=== PATIENT | female | born 2000 | race Caucasian/White ===

== ENCOUNTER 2021-09-10 09:25 | Emergency (ER) | payer OTHER, SELFPAY ==
--- NOTE | ~2021-09-10 | XR_ITS ---
EXAMINATION: XR HAND, RIGHT CLINICAL INFORMATION: Right index finger pain. COMPARISON: None TECHNIQUE: PA, lateral, and oblique views of the right hand. FINDINGS: The bones and soft tissues are normal. No fracture. Alignment is anatomic. Joint spaces are maintained. No erosions or soft tissue calcifications. XR/XR hand RT 2V IMPRESSION: Unremarkable right hand. Specifically, the second digit is intact.
[2021-09-10 09:28] VITALS: BP 117/65; PULSE 91; RESP 19; TEMP 36.3; O2SAT 96; BMI 22.1
[2021-09-10 10:25] LABS: MANUAL DIFF FLAG NO
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
[2021-09-10 10:39] LABS: Basophils Percent Auto 0.2 % (0-2); Eosinophils Absolute Auto 0.1 X10*3/uL (0.0-0.4); Eosinophils Percent Auto 0.6 % (0-4); Hematocrit 39.6 % (37.0-47.0); Hemoglobin 13.1 g/dl (12.0-16.0); Imm Gran Abs Auto 0.04 X10*3/uL (0.00-0.03); Imm Gran Pct Auto 0.5 % (0.0-0.4); Lymphocytes Absolute Auto 1.5 X10*3/uL (1.2-4.9); Lymphocytes Percent Auto 16.6 % (20-40); Mean Corpuscular HGB Conc 33.1 g/dl (31.0-35.0); Mean Corpuscular Hemoglobin 29.2 pg (27.0-33.0); Mean Corpuscular Volume 88.2 fL (80.0-98.0); Mean Platelet Volume 10.7 fL (9.4-12.3); Monocytes Absolute Auto 0.5 X10*3/uL (0.1-1.2); Monocytes Percent Auto 5.6 % (2-11); Neutrophils Absolute Auto 6.8 x10*3/uL (2.0-8.3); Neutrophils Percent Auto 76.5 % (45-73); Platelet Count 281 X10*3/uL (160-400); Red Blood Count 4.49 X10*6/uL (4.20-5.50); White Blood Count 8.9 X10*3/uL (4.8-10.8)
[2021-09-10 10:57] LABS: Lactic Acid 0.8 mmol/L (0.5-2.0)
[2021-09-10 11:00] LABS: Anion Gap 11 (12-20); Blood Urea Nitrogen 11 mg/dL (9-16); C Reactive Protein 0.36 mg/dL (< or = 0.50); Calcium 9.9 mg/dL (8.4-10.2); Carbon Dioxide 24 mmol/L (22-29); Chloride 110 mmol/L (96-108); Estimated Glomerular Filt Rate > 60; Glucose Random 86 mg/dL (60-115); Potassium 3.8 mmol/L (3.3-5.1); Sodium 141 mmol/L (135-145)
[2021-09-10 11:21] VITALS: BP 120/78; PULSE 62; RESP 18; TEMP 36.4; O2SAT 100
[2021-09-10 11:29] LABS: Erythrocyte Sedimentation Rate 14 MM/HR (0-20)
== END 2021-09-10 11:39 | disposition home or self-care (01) ==
PROVIDERS: Physician Assistant; Emergency Provider Emergency Medicine Emergency Medical Services; PCP Pediatrics
DX: S61.250A Open bite of right index finger without damage to nail, initial encounter (principal); L03.011 Cellulitis of right finger; W50.3XXA Accidental bite by another person, initial encounter; Y93.9 Activity, unspecified; Y92.9 Unspecified place or not applicable; Y99.9 Unspecified external cause status; Z79.899 Other long term (current) drug therapy
CPT/HCPCS: 36415; 73120; 80048; 83605; 85025; 85652; 86140; 87040; 99283; 99284

== ENCOUNTER → 2021-09-14 10:00 | Outpatient (BNVA) | payer OTHER, SELFPAY | PROVIDERS: PCP Pediatrics; Visit Provider Orthopaedic Surgery | DX: Z13.89 Encounter for screening for other disorder (principal) ==

== ENCOUNTER 2022-12-09 07:33 | Emergency (ER) | payer OTHER, SELFPAY ==
--- NOTE | ~2022-12-09 | XR_ITS ---
EXAMINATION: XR ANKLE, RIGHT CLINICAL INFORMATION: Trauma COMPARISON: None available. TECHNIQUE: AP, lateral, and mortise views of the right ankle. FINDINGS: There is lateral soft tissue swelling. There is irregular appearance of the lateral cortex of the talus questionable for avulsion fracture. No other fracture is seen. Ankle mortise is normal. There is lateral soft tissue swelling. XR/XR ankle RT min 3V IMPRESSION: Question avulsion fracture of the lateral talus. Lateral soft tissue swelling.
[2022-12-09 07:42] VITALS: BP 109/54; BP 125/60; PULSE 66; PULSE 82; RESP 16; TEMP 36.8; O2SAT 98; O2SAT 99; BMI 23.0
--- NOTE | 2022-12-09 07:46 | ED.GENADULT ---
HPI - General Adult General Chief complaint: General Medical Stated complaint: Fall yesterday, R ankle pain per EMS Time Seen by Provider: 12/09/22 07:35 Source: patient and EMS Mode of arrival: EMS Limitations: no limitations History of Present Illness HPI narrative: Patient presented complaining of right ankle pain she states that she tripped and fell 01:00 o'clock in AM she denies denies any other injury such as neck pain chest wall pain abdominal pain headache Onset (ago): hour(s) (6) Location: lower extremity (Right ankle) Radiation: non-radiation Severity: moderate Quality: burning Pain Consistency: constant Relieving factors: none Exacerbating factors: none Associated symptoms: denies other symptoms Related Data Home Medications Medication Instructions Recorded Confirmed amoxicillin 875 mg-potassium 1 tab PO BID 09/14/21 clavulanate 125 mg tablet azithromycin 250 mg tablet 250 mg PO DIRECTED 09/14/21 valacyclovir 500 mg tablet 500 mg PO BID 09/14/21 Previous Rx's Medication Instructions Recorded fluconazole 150 mg tablet 150 mg PO Q3D 2 doses #2 tabs 09/10/21 (Diflucan) Allergies Allergy/AdvReac Type Severity Reaction Status Date / Time No Known Allergies Allergy Verified 09/14/21 10:13 Review of Systems Constitutional: Constitutional: Reports no additional constitutional complaints Cardiovascular: Cardiovascular: Reports no additional cardiovascular complaints Musculoskeletal: Musculoskeletal: Reports as per [facility] Past Medical History Medical History Anxiety Depression Social History Social History (Updated 09/14/21 @ 10:15 by Heather Lion CCM) Alcohol intake: never Smoked in Last 30 Days: Yes Use of substances other than those prescribed or required for medical reasons: No Advance Directives: No Current occupational status: employed Current occupation: [employer]/ rt hand Physical Exam ED Vital Signs: Vital Signs - 24 hr 12/09/22 07:42 12/09/22 08:34 Temperature 98.3 F 97.9 F Pulse Rate 66 64 Respiratory Rate 16 18 Blood Pressure 109/54 L 124/68 Pulse Oximetry 99 97 Oxygen Delivery Method Room Air Room Air BMI result Body Mass Index 23.0 Const Other: She looks well she is no toxic-appearing General: cooperative Nutritional Appearance: well nourished Orientation/consciousness: patient oriented x3 HENMT Head: Yes normal to inspection General nose exam: Normal external nose present Mouth: Normal oral and palatal mucosa present Throat: Yes posterior oropharynx normal Neck Neck: Yes full ROM Chest Chest palpation & inspection: normal inspection of the chest Resp Effort & Inspection: normal respiratory effort Auscultation: clear to auscultation bilaterally Cardio Jugular venous distension: no JVD Rate: regular rate Rhythm: regular rhythm GI Inspection: Yes normal to inspection Palpation (GI): Soft to palpation, not firm, nontender and no guarding Neuro General: patient oriented x3 Cranial nerves: Yes CN's II-XII intact bilaterally Extrem Other: There is swelling deformity tenderness in the right ankle. Medications Administered Discontinued Medications Generic Name Dose Route Start Last Admin Trade Name Freq PRN Reason Stop Dose Admin Acetaminophen 975 mg 12/09/22 08:17 12/09/22 08:46 Acetaminophen 325 Mg Tablet PO 12/09/22 08:18 975 mg ONCE ONE Administration Ibuprofen 800 mg 12/09/22 08:16 12/09/22 08:46 Ibuprofen 800 Mg Tablet PO 12/09/22 08:17 800 mg ONCE ONE Administration Medical Decision Making Medical Decision Making [facility] Narrative: Patient presented with injury of the right ankle x-ray showed question talar fracture, splint was applied and crutches given she will follow-up with ortho Differential Diagnosis Differential Diagnoses: The differential diagnosis associated with the presentation includes Malleolar fracture/ankle dislocation/talar fracture Independent Interpretation I performed an independent interpretation of an: Plain X-Ray Interpretation: X-ray was reviewed and interpreted personally by me agree with radiology reading Radiology Impression Discussion of test interpretation with radiology: I have reviewed the radiologist's reading. Prescription Management I considered prescription management with: Pain Medication Discharge Plan Discharge Clinical Impression: Avulsion fracture of talus Patient Disposition: Home, Self-Care Instructions: Talar Fracture in Adults (ED), Avulsion Fracture (ED) Additional Instructions: Use crutches, no weight-bearing in the right lower extremity, follow-up with orthopedist Prescriptions: No Action fluconazole [Diflucan] 150 mg tablet 150 mg PO Q3D Qty: 2 0RF Rx Instructions: may repeat second dose 72 hrs after first dose if symptoms persist amoxicillin-pot clavulanate 875-125 mg tablet 1 tab PO BID azithromycin 250 mg tablet 250 mg PO DIRECTED valacyclovir 500 mg tablet 500 mg PO BID Referrals: Chalino Lopez MD [Physician] - 3 days Stand Alone Forms: Work/School Release
--- NOTE | 2022-12-09 07:51 | PC.NURSE ---
per pt - was playing outside in the park at 1:30am with friends, fell and twisted right ankle. Pt reports that she is 10/10 pain. Pt is able to feel all toes on left foot but states they feel numb . She is unable to move ankle at all.
[2022-12-09 08:34] VITALS: BP 124/68; PULSE 64; RESP 18; TEMP 36.6; O2SAT 97
[2022-12-09] MEDS: Acetaminophen 325 MG TABLET 975 MG PO (08:46)
[2022-12-09] MEDS: Ibuprofen 800 MG TABLET PO (08:46)
--- NOTE | 2022-12-09 08:48 | PC.NURSE ---
meds given per order. PCT at bedside splitting.
== END 2022-12-09 09:13 | disposition home or self-care (01) ==
PROVIDERS: Emergency Provider Emergency Medicine
DX: S92.151A Displaced avulsion fracture (chip fracture) of right talus, initial encounter for closed fracture (principal); W19.XXXA Unspecified fall, initial encounter; Y93.9 Activity, unspecified; Y92.9 Unspecified place or not applicable; Y99.9 Unspecified external cause status
CPT/HCPCS: 29515; 73610; 99283; 99284

== ENCOUNTER 2022-12-15 08:28 | Outpatient (REF) | payer OTHER, SELFPAY ==
--- NOTE | ~2022-12-15 | XR_ITS ---
EXAMINATION: XR FOOT, RIGHT CLINICAL INFORMATION: Pain. COMPARISON: Ankle study of 12/09/2022. TECHNIQUE: AP, lateral, and oblique views of the right foot. FINDINGS: The cortical irregularity about the medial talar bone is not definitely identified which may be related to projection seen on the ankle study. There remains some mild soft tissue swelling in this location. No definite right foot fracture is appreciated. Joint spaces are maintained. No destructive bony lesions identified. XR/XR foot RT min 3V IMPRESSION: No acute fracture or dislocation of the right foot identified. There remains some soft tissue swelling about the medial aspect of the foot adjacent to the talar bone and possible fracture seen on ankle study of was suspicious for avulsion fracture and is of different obliquity than foot studies.
== END 2022-12-15 08:29 | disposition home or self-care (01) ==
LOC: HO.HOSX 08:28
PROVIDERS: Visit Provider Physician Assistant
DX: S92.101A Unspecified fracture of right talus, initial encounter for closed fracture (principal); W19.XXXA Unspecified fall, initial encounter; Y93.9 Activity, unspecified; Y92.9 Unspecified place or not applicable; Y99.9 Unspecified external cause status
CPT/HCPCS: 73630

== ENCOUNTER 2022-12-15 14:35 | Outpatient (AMB) | payer OTHER, SELFPAY ==
[2022-12-15 14:37] VITALS: BMI 23.0
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
== END 2022-12-15 15:25 | disposition home or self-care (01) ==
PROVIDERS: Visit Provider Physician Assistant
DX: S92.101A Unspecified fracture of right talus, initial encounter for closed fracture (principal)
CPT/HCPCS: 99204

== ENCOUNTER 2023-01-03 08:46 | Outpatient (REF) | payer OTHER, SELFPAY ==
--- NOTE | ~2023-01-03 | XR_ITS ---
EXAMINATION: XR FOOT, RIGHT CLINICAL INFORMATION: Pain COMPARISON: 12/15/2022 and 12/09/2022 TECHNIQUE: AP, lateral, and oblique views of the right foot. FINDINGS: Lateral soft tissue swelling seen on 12/15/2022 is less apparent. Lateral talar fracture questioned on 12/09/2022 study not reproduced on current or 12/15/2022 right foot series. Alignment and articulations are maintained. No definite fracture or dislocation. XR/XR foot RT min 3V IMPRESSION: No acute bony pathology right foot.
== END 2023-01-03 08:47 | disposition home or self-care (01) ==
LOC: HO.HOSX 08:46
PROVIDERS: Visit Provider Physician Assistant
DX: S92.101D Unspecified fracture of right talus, subsequent encounter for fracture with routine healing (principal)
CPT/HCPCS: 73630

== ENCOUNTER 2023-01-03 15:04 | Outpatient (AMB) | payer OTHER, SELFPAY ==
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
[2023-01-03 15:23] VITALS: BMI 23.0
== END 2023-01-03 15:38 | disposition home or self-care (01) ==
PROVIDERS: Visit Provider Physician Assistant
DX: S92.101D Unspecified fracture of right talus, subsequent encounter for fracture with routine healing (principal)
CPT/HCPCS: 99213

== ENCOUNTER 2023-02-02 14:24 | Outpatient (AMB) | payer OTHER, SELFPAY ==
--- NOTE | 2023-02-02 14:37 | MHC.OFFVIS ---
Intake Vital Signs 02/02/23 14:42 Height 5 ft 3 in Weight 130 lb BMI 23.0 Intake Visit Reasons: OV-avulsion fracture of right ankle Intake Note: Erika 22 yr old female for her follow up visit of her Fracture of right talus from DOI 12/09/22. States she not started P.T due to no one reaching out to her. She has been trying to walk with out her boot at home with little pain. States she has to be mindful of her steps to avoid increase of pain. Allergies No Known Allergies Allergy (Verified 02/02/23 14:42) HPI OV-avulsion fracture of right ankle HPI Details 22-year-old female who presents in the office today for a follow up of a right ankle talus fracture, which occurred on 12/09/2022 status post a trip with her orbeeze gun and fell on wood chips. She states she has been trying to ambulate at home without the boot with little pain. She reports she has been mindful of her steps to avoid an increase in pain. Patient reports she has not attended physical therapy due to no one reaching out to her. Patient works at [employer] [facility] Medical History Anxiety Depression Social History Alcohol intake: never Current occupational status: employed Current occupation: [employer]/ rt hand Review of Systems Const All systems reviewed & are unremarkable except as noted in HPI and below Physical Exam Vital Signs: BMI result Body Mass Index 23.0 Const General: cooperative, healthy appearing and no acute distress Resp Effort & Inspection: normal respiratory effort and able to speak in complete sentences Cardio Rate: regular rate Peripheral pulses: Peripheral pulses 2+ throughout GI Palpation (GI): Soft to palpation Skin Lesions: no lesions Rashes: no rashes Extrem Other: Right ankle/foot: Normal to inspection. No ecchymosis, erythema, or edema. Mild tenderness to palpation to the anterior aspect of the talus. Able to dorsiflex and plantarflex. Slightly able to perform inversion and eversion with pain. Sensation intact. Pedal pulse intact. Assessment & Plan Assessment & Plan (1) Fracture of right talus: Comment: chronic appearing lateral talus fracture Code(s): S92.101A - Unspecified fracture of right talus, initial encounter for closed fracture Qualifiers: Encounter type: subsequent encounter Fracture alignment: nondisplaced Fracture healing: with routine healing Fracture type: closed Talus location: unspecified portion of talus Qualified Code(s): S92.101D - Unspecified fracture of right talus, subsequent encounter for fracture with routine healing Plan Ms. Cronin is a 22-year-old female who presents in the office today for a follow up of a right ankle talus fracture, which occurred on 12/09/2022 status post a trip with her orbeeze gun and fell on wood chips. She states she has been trying to ambulate at home without the boot with little pain. She reports she has been mindful of her steps to avoid an increase in pain. Patient reports she has not attended physical therapy due to no one reaching out to her. Patient works at [employer]. The patient is able to come out of the boot at home to ambulate short distances. I will place a new order for physical therapy. The office called physical therapy to schedule her first appointment, which will be on Monday02/06/2023. She was educated that she can not return to driving until she is cleared by physical therapy. I gave the patient a work note stating she can return to work with the restrictions of no ladder climbing and she is able to use the scooter. Follow up will be in 4-6 weeks, or sooner if needed. X-rays of the right ankle which were obtained while in the office today and were reviewed by me, Sarita De Santiago PA-C, revealed a lateral talus fracture with routine healing. Orders: Orders XR ankle RT min 3V 02/02/23 M25.579 - Pain in unspecified ankle and joints of unspecified foot PT Evaluation and Treatment 02/02/23 S92.101A - Unspecified fracture of right talus, initial encounter for closed fracture Patient Instructions: Scribed for Sarita De Santiago PA-C by Darcie Mirza pediatrician/medical doctor, on 02/02/2023 at 2:26 pm, EST. Coding Level of Care Code Global (08036) Diagnoses Closed nondisplaced fracture of right talus with routine healing, unspecified portion of talus, subsequent encounter S92.101D Encounter type: subsequent encounter Fracture alignment: nondisplaced Fracture healing: with routine healing Fracture type: closed Talus location: unspecified portion of talus
[2023-02-02 14:42] VITALS: BMI 23.0
== END 2023-02-02 14:57 | disposition home or self-care (01) ==
PROVIDERS: Visit Provider Physician Assistant
DX: S92.101D Unspecified fracture of right talus, subsequent encounter for fracture with routine healing (principal)
CPT/HCPCS: 99213

== ENCOUNTER 2023-02-02 17:23 | Outpatient (REF) | payer OTHER, SELFPAY ==
--- NOTE | ~2023-02-02 | XR_ITS ---
EXAMINATION: XR ANKLE, RIGHT CLINICAL INFORMATION: Right ankle pain COMPARISON: 01/03/2023 TECHNIQUE: 3 views of the right ankle. FINDINGS: The lateral talar fracture questioned on 12/09/2022 exam remains difficult to confirm. Ankle mortise is preserved. Decreased lateral soft tissue swelling. Please note that oblique view provided today differs from obliquity obtained on 12/09/2022, limiting comparison. XR/XR ankle RT min 3V IMPRESSION: The lateral talar fracture questioned on 12/09/2022 exam remains difficult to confirm. Please note that oblique view provided today differs from obliquity obtained on 12/09/2022, limiting comparison. Additional imaging with CT scan or MRI should be considered for better visualization as these modalities are much more sensitive for detection of fracture or other underlying pathology.
== END 2023-02-02 17:24 | disposition home or self-care (01) ==
LOC: HO.HOSX 17:23
PROVIDERS: Visit Provider Physician Assistant
DX: M25.571 Pain in right ankle and joints of right foot (principal); S92.101D Unspecified fracture of right talus, subsequent encounter for fracture with routine healing; X58.XXXD Exposure to other specified factors, subsequent encounter
CPT/HCPCS: 73610

== ENCOUNTER 2023-02-23 11:00 | Outpatient (RCR) | payer OTHER, SELFPAY ==
--- NOTE | 2023-03-14 09:25 | MHC.PT.DC ---
[facility] [place] [facility] [place] [facility] [place] [facility] [address] Lali Bowden [address] [facility] [phone] F: [phone] F: [phone] F: [phone] F: [phone] Physical Therapy Discharge Report Diagnosis: R talus avulsion fracture Date of Surgery: N/A Date of Evaluation: 02/06/23 Date of Discharge: 03/14/23 Treatments to Date: 4 Cancellations to Date: 7 No Shows to Date: 0 Discharge Status: Improved Function Visit Non-compliance Discharge Summary: Erika participated in 4 treatment sessions for R talus fracture. She was able to progress to phase 2 exercises including CKC mini-squats and wobble board. However, she cancelled 3 appointments, then again cancelled her last 4 scheduled appointments. D/C at this time to visit non-compliance, patient notified. Pt returned to MD and requested additional PT which she will be participating in at a different facility. Thank you for this referral. Electronically signed by: Ashley Rojas PT, DPT Please sign and return to therapist. Thank you for your referral.
== END 2023-04-26 12:16 | disposition home or self-care (01) ==
LOC: HO.PT 11:00
PROVIDERS: Visit Provider Physician Assistant
DX: S92.101D Unspecified fracture of right talus, subsequent encounter for fracture with routine healing (principal)
CPT/HCPCS: 97110; 97116; 97140; 97161; 97530

== ENCOUNTER 2023-03-10 11:00 | Outpatient (AMB) | payer OTHER, SELFPAY ==
--- NOTE | 2023-03-10 11:11 | MHC.OFFVIS ---
Intake Vital Signs 03/10/23 11:14 Height 5 ft 3 in Weight 130 lb BMI 23.0 Intake Visit Reasons: OV-avulsion fracture of right ankle Intake Note: Erika is a 22 year old female who presents today for her follow up visit of her right talus fx, DOI 12/09/22. Patient states doing well but she states she need more time with PT due to her trying to reschedule and wasn't able to go. Allergies No Known Allergies Allergy (Verified 03/10/23 11:13) HPI OV-avulsion fracture of right ankle HPI Details 22-year-old female who presents in the office today for a follow up of a right ankle talus fracture, which occurred on 12/09/2022 status post a trip with her orbeeze gun and fell on wood chips. The patient reports she is doing well, but states she needs more time in physical therapy due to her trying to reschedule and was not able to attend. 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 No ecchymosis, erythema, or edema. Mild tenderness to palpation to the anterior aspect of the talus. Able to dorsiflex and plantarflex. Slightly able to perform inversion and eversion with pain. Sensation intact. Pedal pulse intact. Assessment & Plan Assessment & Plan (1) Fracture of right talus: Comment: chronic appearing lateral talus fracture Code(s): S92.101A - Unspecified fracture of right talus, initial encounter for closed fracture Qualifiers: Encounter type: subsequent encounter Fracture alignment: nondisplaced Fracture healing: with routine healing Fracture type: closed Talus location: unspecified portion of talus Qualified Code(s): S92.101D - Unspecified fracture of right talus, subsequent encounter for fracture with routine healing Plan Ms. Cronin is a 22-year-old female who presents in the office today for a follow up of a right ankle talus fracture, which occurred on 12/09/2022 status post a trip with her orbeeze gun and fell on wood chips. The patient reports she is doing well, but states she needs more time in physical therapy due to her trying to reschedule and was not able to attend. The patient was given a work note stating she should have a chair near to rest her leg on while she is standing. No stair climbing. She will continue to work with physical therapy. However, she was discharged from our facility due to no shows. She would like to attend a facility closer to home, therefore a paper copy of the physical therapy order has been given to the patient. Follow up will be in 4-6 weeks, or sooner if needed. X-rays of the right ankle obtained while in the office today and reviewed by me, Sarita De Santiago PA-C, revealed routine healing of a right talus fracture. Orders: Orders XR ankle RT min 3V Today M25.579 - Pain in unspecified ankle and joints of unspecified foot PT Evaluation and Treatment Today S92.101A - Unspecified fracture of right talus, initial encounter for closed fracture Patient Instructions: Scribed for Sarita De Santiago PA-C by Darcie Mirza medical claims representative, on 03/10/2023 at 11:01 am, EST. Coding Level of Care Code Global (01184) Diagnoses Closed nondisplaced fracture of right talus with routine healing, unspecified portion of talus, subsequent encounter S92.101D Encounter type: subsequent encounter Fracture alignment: nondisplaced Fracture healing: with routine healing Fracture type: closed Talus location: unspecified portion of talus
[2023-03-10 11:14] VITALS: BMI 23.0
== END 2023-03-10 11:31 | disposition home or self-care (01) ==
PROVIDERS: Visit Provider Physician Assistant
DX: S92.101D Unspecified fracture of right talus, subsequent encounter for fracture with routine healing (principal)
CPT/HCPCS: 99213

== ENCOUNTER 2023-03-10 16:00 | Outpatient (REF) | payer OTHER, SELFPAY ==
--- NOTE | ~2023-03-10 | XR_ITS ---
EXAMINATION: XR ANKLE, RIGHT CLINICAL INFORMATION: Pain. COMPARISON: Radiograph right ankle 02/02/2023 and 12/09/2022. TECHNIQUE: AP, lateral, and mortise views of the right ankle. FINDINGS: Stable appearance of avulsion fracture along the lateral talus. No new fractures or subluxation. Ankle mortise is maintained. No significant soft tissue abnormality. No unexpected radiopaque foreign bodies. XR/XR ankle RT min 3V IMPRESSION: 1. Stable avulsion fracture along the lateral talus. 2. No new fractures or subluxation.
== END 2023-03-10 16:01 | disposition home or self-care (01) ==
LOC: HO.HOSX 16:00
PROVIDERS: Visit Provider Physician Assistant
DX: S92.101D Unspecified fracture of right talus, subsequent encounter for fracture with routine healing (principal)
CPT/HCPCS: 73610

== ENCOUNTER 2023-04-28 11:00 | Outpatient (REF) | payer OTHER, SELFPAY ==
--- NOTE | ~2023-04-28 | XR_ITS ---
EXAMINATION: XR ANKLE, RIGHT CLINICAL INFORMATION: Pain COMPARISON: Right ankle x-rays 03/10/2023 TECHNIQUE: AP, lateral, and mortise views of the right ankle. FINDINGS: Stable bony fragment adjacent to the lateral malleolus consistent with old avulsion fracture. Ankle mortise is maintained. No soft tissue swelling of the ankle. No acute fracture. No gross ankle joint effusion. XR/XR ankle RT min 3V IMPRESSION: Old avulsion fracture of the lateral malleolus. No acute fracture.
== END 2023-04-28 11:01 | disposition home or self-care (01) ==
LOC: HO.HOSX 11:00
PROVIDERS: Visit Provider Physician Assistant
DX: S92.101D Unspecified fracture of right talus, subsequent encounter for fracture with routine healing (principal)
CPT/HCPCS: 73610

== ENCOUNTER 2023-04-28 11:19 | Outpatient (AMB) | payer OTHER, SELFPAY ==
[2023-04-28 11:21] VITALS: BMI 23.0
--- NOTE | 2023-04-28 11:21 | MHC.OFFVIS ---
Intake Vital Signs 04/28/23 11:21 Height 5 ft 3 in Weight 130 lb BMI 23.0 Intake Visit Reasons: OV-avulsion fracture of right ankle-F/U Intake Note: Erika is a 22 year old female who presents today for her follow up visit of her right talus fx, DOI 12/09/22. Patient states she is doing well, however when she drove she felt some pain when she got up after driving. Allergies No Known Allergies Allergy (Verified 04/28/23 11:21) HPI OV-avulsion fracture of right ankle-F/U HPI Details 22-year-old female who presents in the office today for a follow up of a right ankle talus fracture, which occurred on 12/09/2022 status post a trip with her orbeeze gun and fell on wood chips. The patient was last seen in the office by me on 03/10/2023 where she was given a work note stating she should have a chair near to rest her leg on while she is standing. No stair climbing. At the time of her appointment she had not started physical therapy. She requested to attend a physical therapy closer to her home and a paper copy was supplied. While in the office today the patient reports she is doing well. She states when she drove she felt some pain after she got up out of the car. FORMERLY [facility] Medical History Anxiety Depression Social History Alcohol intake: never Current occupational status: employed Current occupation: [employer]/ rt hand Review of Systems Const All systems reviewed & are unremarkable except as noted in HPI and below Physical Exam Vital Signs: BMI result Body Mass Index 23.0 Const General: cooperative, healthy appearing and no acute distress Resp Effort & Inspection: normal respiratory effort and able to speak in complete sentences Cardio Rate: regular rate Peripheral pulses: Peripheral pulses 2+ throughout GI Palpation (GI): Soft to palpation Skin Lesions: no lesions Rashes: no rashes Extrem Other: Right ankle: Normal to inspection. No ecchymosis, erythema, or edema. Patient is able to demonstrate dorsiflexion, plantar flexion, pronation and supination. Negative anterior drawer. Sensation intact. Pedal Pulse intact. Assessment & Plan Assessment & Plan (1) Fracture of right talus: Comment: chronic appearing lateral talus fracture Code(s): S92.101A - Unspecified fracture of right talus, initial encounter for closed fracture Qualifiers: Encounter type: subsequent encounter Fracture alignment: nondisplaced Fracture healing: with routine healing Fracture type: closed Talus location: unspecified portion of talus Qualified Code(s): S92.101D - Unspecified fracture of right talus, subsequent encounter for fracture with routine healing Plan Ms. Cronin is a 22-year-old female who presents in the office today for a follow up of a right ankle talus fracture, which occurred on 12/09/2022 status post a trip with her orbeeze gun and fell on wood chips. The patient was last seen in the office by me on 03/10/2023 where she was given a work note stating she should have a chair near to rest her leg on while she is standing. No stair climbing. At the time of her appointment she had not started physical therapy. She requested to attend a physical therapy closer to her home and a paper copy was supplied. While in the office today the patient reports she is doing well. She states when she drove she felt some pain after she got up out of the car. 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 Follow up will be PRN, or sooner if needed. X-rays of the right ankle which were obtained while in the office today and were reviewed by me, Sarita De Santiago PA-C, revealed routine healing of a right talus fracture. Orders: Orders XR ankle RT min 3V Today M25.579 - Pain in unspecified ankle and joints of unspecified foot Patient Instructions: Scribed for Sarita De Santiago PA-C by Darcie Mirza medical chief technician, on 04/28/2023 at 11:23 am, EST. Coding Level of Care Code Est Pt Level 3 (17427) Diagnoses Closed nondisplaced fracture of right talus with routine healing, unspecified portion of talus, subsequent encounter S92.101D Encounter type: subsequent encounter Fracture alignment: nondisplaced Fracture healing: with routine healing Fracture type: closed Talus location: unspecified portion of talus
== END 2023-04-28 11:40 | disposition home or self-care (01) ==
PROVIDERS: Visit Provider Physician Assistant
DX: S92.101D Unspecified fracture of right talus, subsequent encounter for fracture with routine healing (principal)
CPT/HCPCS: 99212